=== PATIENT | female | born 1990 | race Caucasian/White ===

== ENCOUNTER 2022-12-10 10:34 | Emergency (ER) | payer MEDICAID, SELFPAY ==
[2022-12-10 10:35] VITALS: BP 121/83; PULSE 113; RESP 16; TEMP 36.2; O2SAT 96; BMI 16.9
--- NOTE | 2022-12-10 11:11 | EKG12_ITS ---
Test Reason : CP/SOB Blood Pressure : / mmHG Vent. Rate : 075 BPM Atrial Rate : 075 BPM P-R Int : 138 ms QRS Dur : 070 ms QT Int : 378 ms P-R-T Axes : 069 112 071 degrees QTc Int : 422 ms Normal sinus rhythm with sinus arrhythmia Right axis deviation Abnormal ECG Confirmed by ROSALINDA SHARMA, ARLENE ([id number]), school photograph editor ANGEL HOWARD ([id number]) on 12/13/2022 11:31:19 AM Referred By: Confirmed By:LISA TELLEZ MD
--- NOTE | 2022-12-10 11:56 | EX.ED.DYSGE1 ---
HPI History of Present Illness Chief Complaint: Nausea/Vomiting Informant: patient Narrative Narrative: Patient is a 32-year-old female with longstanding history of celiac's disease and gastroparesis as well as what sounds like malnutrition presenting with worsening gastroparesis symptoms. Patient states her symptoms started 3 years ago after she had a that was plagued with hyperemesis gravidarum. She has followed with GI through [facility], first was Dr. Calero and the doctor will help draw but does not currently follow with them and did not like her second GI doctor. Her PCP is Dr. Mohan. She has seen rheumatology in August of this year and has elevated KEEGAN and sed rate. She has Zofran at home and was previously on omeprazole. She was down to 94 pounds 1 month ago. As she did have boost high-protein prescribed and last time she waited so she was 102 pounds. She notes over the past few days she has had decreased oral intake is not keeping up with her calorie intake. She states on the (10 days ago) she had a telehealth appointment (she is not sure through what hospital system) and was told that she should be admitted for further evaluation and nutrition. Patient states that she did not have a ride to the hospital so she did not come in until today. She states she still continues to have early satiety and vomiting. She is hoping to have answers and to get better today. Patient also reports history of POTS and Deja-Danlos syndrome. PFSH PFSH Allergy/AdvReac Type Severity Reaction Status Date / Time azithromycin Allergy Hives Verified 12/10/22 10:39 fluoxetine [From Prozac] AdvReac Other Verified 12/10/22 10:39 Social History Smoking Status: Current every day smoker tobacco type: cigarettes ROS ROS ED Constitutional Constitutional ED: Reports weight loss; Denies chills or fever(s) ENT ENT ED: Denies rhinorrhea Cardiovascular Cardiovascular: Denies chest pain or palpitations Respiratory/Chest Respiratory/Chest: Denies cough Gastrointestinal Gastrointestinal: Reports abdominal pain, nausea, vomiting and other Details: alternated with diarrhea and constipation Genitourinary Genitourinary ED: Denies dysuria Musculoskeletal Musculoskeletal: Denies arthralgias or myalgias Integumentary Denies rash Neurologic Neurologic: Reports weakness; Denies headache(s) or paresthesias Psychiatric Psychiatric: Reports anxiety; Denies depression EXAM Physical Exam Const Vital Signs: 12/10/22 10:35 Temperature 97.1 F L Temperature Source Temporal Pulse Rate 113 H Respiratory Rate 16 Blood Pressure 121/83 H Blood Pressure Mean 95 Pulse Ox 96 Oxygen Delivery Method Room Air Positive well nourished and well developed Constitutional Narrative: thin General Appearance ED: well developed and NAD HEENT Reports moist mucous membranes Eyes PERRL and EOMs intact bilaterally Neck supple Chest Wall inspection of chest normal Resp normal respiratory effort and clear to auscultation bilaterally Cardio regular rate, regular rhythm and no murmurs GI normal to inspection, nondistended, normoactive bowel sounds and non-tender Back/Spine no CVA tenderness Extremity normal to inspection General Extremety ED: Negative for edema General Extremity: Negative for edema Neuro oriented x3 Sensorium / Orientation: alert Motor Exam: Negative for general weakness Psych mental status grossly normal Skin no rashes or lesions noted and no wounds MDM MDM MDM Narrative Medical decision making narrative: Patient presents with chronic abdominal pain associated with gastroparesis. Patient currently is on any medications. She states she has been on omeprazole for some time but stopped taking it because it was not helping. She has gained weight since starting on nutritional supplements however she feels over the past few days she had decreased oral intake. On arrival patient is tachycardic. She is given 500 cc fluid bolus in the ER. She is given IV Reglan as well as Pepcid. On repeat evaluation she is resting. She does not have any significant Henagar light abnormalities and has a normal protein. I do not think she meets criteria for admission for acute malnutrition. Discussed referral to GI as well as prescription for Reglan to go home but then patient eloped from the emergency room stating everything was taking too long. Patient was able to walk out of the emergency room. Lab Data Attestation: I reviewed the patient's lab results. Labs: Laboratory Results - last 24 hr 12/10/22 12/10/22 12/10/22 11:50 11:50 11:50 WBC 5.8 RBC 5.06 Hgb 14.9 Hct 44.9 MCV 88.7 MCH 29.4 MCHC 33.2 RDW Std Deviation 42.6 RDW Coeff of Malini 13.2 Plt Count 200 MPV 10.1 Immature Gran % (Auto) 0.500 Neut % (Auto) 54.8 Lymph % (Auto) 34.0 [place] % (Auto) 9.3 Eos % (Auto) 0.9 Baso % (Auto) 0.5 Absolute Neuts (auto) 3.2 Absolute Lymphs (auto) 1.98 Nucleated RBC % 0 Sodium 137 Potassium 4.2 Chloride 109 H Carbon Dioxide 28.0 Anion Gap 0 L BUN 12 Creatinine 0.70 Estim Creat Clear Calc 85.83 Est GFR (MDRD) Af Amer 126 Est GFR (MDRD) Non-Af 104 BUN/Creatinine Ratio 17.1 Glucose 83 Calcium 9.1 Phosphorus 3.3 Total Bilirubin 0.30 Direct Bilirubin 0.08 AST 11 L ALT 19 Alkaline Phosphatase 42 L Total Creatine Kinase 47 Total Protein 7.4 Albumin 4.0 Globulin 3.4 Amylase 70 Lipase 44 Urine Color Yellow Urine Clarity Sl. Cloudy Urine pH 6.0 Ur Specific [place]rae [place] 1.020 Urine Protein 30 H Urine Glucose (UA) Normal Urine Ketones 5 H Urine Occult Blood Negative Urine Nitrite Negative Urine Bilirubin Negative Urine Urobilinogen 1 H Ur Leukocyte Esterase 25 H Urine RBC 0 SEEN Urine WBC 0-5 SEEN Ur Squamous Epith Cells 0-5 SEEN Urine Bacteria 1+ Urine Mucus 2+ Urine Test Negative Rhythm Strip Rhythm Strip: Sinus Rhythm Rate: 75 Ectopy: None EKG Initial EKG: Attestation: I personally reviewed and interpreted this EKG as follows: Interpretation: Sinus Rhythm Comments: NSR with sinus arrhythmia rate of 75 bpm Normal QRS and QTc Right axis deviation Normal ST segments Discharge Plan Triage Chief Complaint: Nausea/Vomiting ED Provider: Selma Jimenez Dx/Rx/DC Orders Clinical Impression: Abdominal pain, chronic, generalized, Gastroparesis Primary Care Provider: Care Physician,No Primary Referrals: Care Physician,No Primary [Primary Care Provider] - Disposition Disposition: Elopement Discharge Date/Time: 12/10/22 13:40
[2022-12-10] MEDS: 0.9% Normal Saline 1,000 ML 500 ML IV (11:57)
[2022-12-10] MEDS: Metoclopramide 10 MG/2 ML Vial IV (11:57)
[2022-12-10 12:00] LABS: Red Blood Cells-Urine 0 SEEN /hpf (0-5)
[2022-12-10 12:03] LABS: Absolute Lymphocyte Count 1.98 X10^3/uL (0.83-4.51); Absolute Neutrophil Count 3.2 X10^3/uL (2.0-7.7); Basophil# 0.03 X10^3/uL; Basophil% 0.5 % (0-1); Eosinophil# 0.05 X10^3/uL; Eosinophils% 0.9 % (0-5); Hematocrit 44.9 % (37-47); Hemoglobin 14.9 g/dL (12.0-15.0); Lymphocyte # 1.98 X10^3/ul (0.83-4.51); Mean Corp Hgb Conc 33.2 g/dL (32-36); Mean Corpuscular Hgb 29.4 pg (27.0-32.0); Mean Corpuscular Volume 88.7 fL (81-99); Mean Platelet Vol. 10.1 fl (6.2-12.0); Monocyte# 0.54 X10^3/uL; Monocyte% 9.3 % (0-10); NRBC Flagged by Analyzer 0 % (0-5); Neutrophil # 3.19 X10^3/uL (2.7-7.7); Neutrophil % 54.8 % (47-70); Platelet Count 200 K/mm3 (150-450); RBC Distribution Width CV 13.2 % (11.6-14.6); RBC Distribution Width SD 42.6 fl (35.1-43.9); Red Blood Count 5.06 M/mm3 (4.2-5.4); White Blood Count 5.8 K/mm3 (4.4-11.0)
[2022-12-10 12:04] LABS: Color, Urine Yellow (Yellow); Glucose, Dipstick Normal (Normal); Ketone-Dipstick 5 mg/dl (Negative); Leukocyte Esterase-Dipstick 25 /ul (Negative); Nitrite-Dipstick Negative (Negative); Occult Blood-Urine Negative /ul (Negative); Protein-Dipstick 30 mg/dl (Negative); Urine Bilirubin Dipstick Negative (Negative); Urine Clarity Sl. Cloudy (Clear); Urine Urobilinogen 1 mg/dl (Normal)
[2022-12-10 12:12] LABS: Bacteria 1+ /hpf (None Seen); Internal QC Validated? YES +Cl - CLEAR BKGD; Mucous, Urine 2+ /hpf (<or=2+); Pregnancy, Urine Negative Negative; Squamous Epithelial Cells - UA 0-5 SEEN /hpf (5-10); White Blood Cells 0-5 SEEN /hpf (0-5)
[2022-12-10 12:21] LABS: AST(SGOT) 11 U/L (15-37); Alanine Aminotransfer ALT/SGPT 19 U/L (13-56); Alkaline Phosphatase 42 U/L (45-117); Amylase 70 U/L (25-115); Anion Gap 0 (5-15); BUN 12 mg/dL (7-18); BUN/Creat Ratio 17.1 RATIO (10-20); Bilirubin, Direct 0.08 mg/dL (0.00-0.30); CPK Total, Creatine Kinase 47 U/L (26-192); Calcium,Total 9.1 mg/dL (8.5-10.1); Chloride 109 mmol/L (98-107); EST Glomerular Filtration Rate 104 mL/min (>60); Est Glom Filt Rate - Afr Amer 126 mL/min (>60); Estimated Creatinine Clearance 85.83 ml/min; Globulin 3.4 g/dL (2.2-4.2); Glucose 83 mg/dL (74-106); Lipase 44 U/L (13-75); Phosphorus 3.3 mg/dL (2.5-4.9); Potassium 4.2 mmol/L (3.5-5.1); Protein, Total 7.4 g/dL (6.4-8.2); Sodium Level 137 mmol/L (136-145)
--- NOTE | 2022-12-10 13:33 | ED.RN ---
PT'S S/O ASKED THIS RN TO COME REMOVE THE PATIENT'S IV. RN INTO THE ROOM AND PT STATES YEAH I WANT MY IV OUT BECAUSE IT SHOULDN'T TAKE THIS LONG TO GET BLOODWORK BACK. THIS RN INFORMED PT THAT HER BLOODWORK IS BACK AND THAT THE DR NEEDS TO COME IN AND DISCUSS THE RESULTS, HOWEVER THIS IS AN EMERGENCY ROOM AND WE HAVE HAD MULTIPLE STROKE ALERTS TODAY AND UNFORTUNATELY THAT PUTS THINGS BEHIND AND THAT WE HAVE ALREADY LET THE DR KNOW THAT SHE IS WAITING FOR HER REEVAL. THIS PATIENT THEN STATES WELL I AM JUST GOING TO GO TO HOSPICE AND . RN AGAIN APOLOGIZED FOR THE TIMELY DAY.
--- NOTE | 2022-12-10 13:44 | CM.ED ---
Social Work Note Referral Source: Case find Referral Reason: no PCP SW met with patient and patient's guest and introduced herself and role as [facility] Education Spec. Patient lying on hospital bed and agreeable to talk with guest present. SW inquired about patient's insurance, need for PCP as well as address as there is no address on file. Patient reports having toxic family members and not wanting her information listed due to not wanting any family to know where she receives care. Patient then states she is tired and is all done with doctors as well as taking medication. Patient states she is thinking about Hospice services instead of continuing care. SW provided patient with emotional support and discussed talking with MD regarding Hospice referral, explaining an advocate could come to ED to discuss services. Patient in agreement. SW met with MD Jimenez to inquire about patient's diagnosis and discuss patient's request for Hospice services. MD reporting she is referring patient to a GI doctor and feels a Palliative referral is appropriate. SW gathered information regarding local palliative service providers, educational information about palliative services and hospice services and planned to discuss counseling services as well. Upon returning to patient's room with resources, patient not present. Patient's RN reporting patient requested to leave AMA due to MD taking too long. MD informed patient left AMA. SW unable to provide resources. Tiffani Collazo MSW, CARL
== END 2022-12-10 13:40 | disposition left against medical advice (07) ==
LOC: ED 11:57
PROVIDERS: Emergency Provider Emergency Medicine; Visit Provider Emergency Medicine
DX: R10.9 Unspecified abdominal pain (principal); K31.84 Gastroparesis; F17.210 Nicotine dependence, cigarettes, uncomplicated
CPT/HCPCS: J3490; 80048; 80076; 81001; 81025; 82150; 82550; 83690; 84100; 85025; 93005; 96374; 99282; J7030; A4216